=== PATIENT | female | born 1975 | race Caucasian/White ===

== ENCOUNTER → 2016-12-19 | Outpatient (REF) ==
[~2016-12-19] MED LIST: AMOXICILLIN/CLA1 TA1 PO; CEPHALEXIN500 M1 PO; D-31000 IU PO; FLAGYL500 MG PO; FOLIC ACID 40400 MCG PO; LEVEMIR100 U/ML SC; MOTRIN 800800 MG/TAB PO; NOVOLOG FLEX100 U/ML IV; NOVOLOG FLEX100 U/ML SQ; PERCOCET 325 MG1 TA2 PO; PRENATAL1 TA1 PO
== END ==
LOC: WSOH 08:00
DX: Z01.89 Encounter for other specified special examinations (principal)

== ENCOUNTER → 2018-07-25 | Outpatient (CLI) | payer BC | LOC: SUN.DIA 13:26 | DX: E11.9 Type 2 diabetes mellitus without complications (principal); E66.9 Obesity, unspecified; F17.210 Nicotine dependence, cigarettes, uncomplicated | CPT/HCPCS: G0108 ==

== ENCOUNTER → 2018-08-15 | Outpatient (CLI) | payer BC | LOC: SUN.DIA 08:44 | DX: E11.9 Type 2 diabetes mellitus without complications (principal); E66.9 Obesity, unspecified; F17.210 Nicotine dependence, cigarettes, uncomplicated | CPT/HCPCS: G0108 ==

== ENCOUNTER → 2018-09-26 | Outpatient (CLI) | payer BC | LOC: SUN.DIA 08:39 | DX: E11.9 Type 2 diabetes mellitus without complications (principal); E66.9 Obesity, unspecified; F17.210 Nicotine dependence, cigarettes, uncomplicated | CPT/HCPCS: G0108 ==

== ENCOUNTER → 2023-10-02 | Outpatient (CLI) | payer BC ==
[2005-04-05 10:00] VITALS: TEMP 97
[~2023-10-02] MED LIST changes: +CUBICIN 500MG500 MG IV; +LEXAPRO20 MG PO; +MOUNJARO2.5 MG/0.5 SQ; +VITAMIND3 5000 PO
== END ==
LOC: MC.RAD 16:22
DX: Z12.31 Encounter for screening mammogram for malignant neoplasm of breast (principal)

== ENCOUNTER → 2023-10-08 | Outpatient (CLI) | payer BC ==
[~2023-10-08] MED LIST changes: -CUBICIN 500MG500 MG IV; -LEXAPRO20 MG PO; -MOUNJARO2.5 MG/0.5 SQ; -VITAMIND3 5000 PO
== END ==
LOC: MC.RAD 07:54
DX: N63.21 Unspecified lump in the left breast, upper outer quadrant (principal)

== ENCOUNTER 2023-11-21 17:35 | Inpatient (IN) | payer BC ==
[~2023-11-21] VITALS: Ht 162.6 cm; Wt 75.7 kg
[2023-11-21] MEDS ORDERED: Acetaminophen 325 MG TAB PO ONE (18:30)
[2023-11-21] MEDS ORDERED: NS 1,000 ML IV SCH ×2 (18:30→20:00)
[2023-11-21 18:36] LABS: BASO # 0.1 K/mm3 (0.0-0.2); BASO % 0.3 % (0.0-2.0); EOS % 0.1 % (0.0-4.0); GRAN # 12.3 K/mm3 (1.4-6.5); GRAN % 83.8 % (42.2-75.2); LYMPH # 1.2 K/mm3 (1.2-3.4); LYMPH % 7.9 % (20.0-51.0); MEAN CELL VOLUME 95 fl (80.0-100.0); MEAN CORPUSCULAR HEMOGLOBIN 31 pg (27-31); MEAN CORPUSCULAR HGB CONC 33 g/dl (33.0-37.0); MEAN PLATELET VOLUME 8.8 fl (7.4-10.4); MONO # 1.1 K/mm3 (0.1-0.6); MONO % 7.2 % (1.7-9.3); PLATELET COUNT 147 K/mm3 (130-400); RED BLOOD COUNT 3.87 M/mm3 (4.10-5.30); REDCELL DISTRIBUTION WIDTH-CV 12.8 % (11.5-14.5)
[2023-11-21 18:39] LABS: HEMATOCRIT 36.7 % (37.0-47.0)
[2023-11-21 18:58] LABS: ALBUMIN 3.1 gm/dL (3.5-5.0); BILIRUBIN,TOTAL 0.6 mg/dL (0.2-1.2); CREATININE, serum 0.74 mg/dL (0.57-1.11); POTASSIUM 3.9 mmol/L (3.5-4.5); TOTAL PROTEIN 6.3 gm/dL (6.2-8.1)
[2023-11-21 19:48] LABS: PH 6.5 (5.0-8.5); URINE APPEARANCE CLEAR (CLEAR/HAZY); URINE BLOOD NEGATIVE (NEGATIVE); URINE COLOR YELLOW (YELLOW); URINE GLUCOSE NEGATIVE (NEGATIVE); URINE KETONE NEGATIVE (NEGATIVE); URINE NITRATE NEGATIVE (NEGATIVE); URINE PROTEIN(semi-quant) NEGATIVE (NEGATIVE)
[2023-11-21] MEDS ORDERED: Acetaminophen 325 MG TAB PO PRN (20:00)
[2023-11-21] MEDS ORDERED: Ondansetron 4 MG/2 ML VIAL IV PRN (20:00)
[2023-11-21] MEDS ORDERED: oxyCODONE 5 MG TAB PO PRN ×2 (20:00)
[2023-11-21] MEDS ORDERED: Morphine 4 MG/ML VIAL IV PRN (20:00)
[2023-11-21 20:03] LABS: COLLECTION METHOD CLEAN CATCH
[2023-11-21] MEDS ORDERED: Vancomycin 1.5 GM,Special Dose/Pharmacy Prepared 1.5 GM in NS 250 ML IV SCH (20:15)
[2023-11-21] MEDS ORDERED: LEXAPRO20 MG PO (20:36)
[2023-11-21] MEDS ORDERED: Sennosides/Docusate 8.6-50 MG TAB PO SCH (21:00)
[2023-11-21] MEDS ORDERED: Heparin 5,000 UNITS/ML 1 ML VIAL SQ SCH (21:00)
[2023-11-21 22:00] VITALS: BP 124/79; PULSE 112; TEMP 99.5
--- NOTE | 2023-11-21 22:37 | NUR ---
Vancomycin Initial Dosing Pharmacy Note Ordering provider: Deni Overton MD Indication/duration: Sepsis w/ possible source of cellulitis at Port-a-cath Relevant comorbidities: Breast cancer undergoing chemo. LABS: WBC = 14.7, SCr = 0.74, Tmax = 100.5 F Recommendation: Will draw troughs and follow levels. Loading dose: 1.5 grams Maintenance dose: 1 gram every 12 hours Trough goal: 10-15 ug/mL
[2023-11-21] MEDS ORDERED: VITAMIND3 5000 PO (23:06)
[2023-11-21] MEDS ORDERED: MOUNJARO2.5 MG/0.5 SQ (23:07)
[2023-11-21 23:47] VITALS: BP 118/74; PULSE 129; TEMP 102.9
[2023-11-22] VITALS (13 sets, daily range): BP systolic 102–122; BP diastolic 59–74; PULSE 114–130; TEMP 97.5–101.6
--- NOTE | 2023-11-22 01:09 | NUR ---
Patient temp on hour ago 102.9 and received tylenol 1000mg. Temp currently 101.6. TELE reporting tachycardia. Spoke with ARAMIS Guaman and new orders received and initiated. Report given to primary nurse JADIEL Gonzalez.
--- NOTE | 2023-11-22 01:10 | NUR ---
RT notified of need for EKG due to tachycardia
[2023-11-22] MEDS ORDERED: Ibuprofen 600 MG TAB PO ONE (01:15)
[2023-11-22] MEDS ORDERED: NS 1,000 ML IV ONE (01:15)
--- NOTE | 2023-11-22 02:20 | NUR ---
Updated ARAMIS Guaman on current temp of 101.6. Fluid bolus has infused and EKG completed. New orders received and initiated.
[2023-11-22] MEDS ORDERED: Albumin (Human) 100 ML IV ONE (02:30)
[2023-11-22] MEDS ORDERED: NS 500 ML IV ONE ×2 (02:30)
--- NOTE | 2023-11-22 02:31 | NUR ---
New orders received from ARAMIS Guaman and initiated. Patient scoring 5 on MEWs. No rapid response called at this time due to provider being updated and treating with fluids/antipyretics. Report given to primary nurse JADIEL Gonzalez.
--- NOTE | 2023-11-22 04:15 | NUR ---
ARAMIS Guaman updated on temp of 97.5. No new orders received.
--- NOTE | 2023-11-22 04:36 | NUR ---
patient arrived from ED at 2200, alert and oriented x4. pt denies chest pain and shortness of breath. IV in RH is patent, site is clean dry and intact with NS running at 125ml/hr. no remarkable skin findings, right chest port with gauze dressing, clean dry and intact. ambulating with steady gait. pt tachycardic in 130s-150s, temperature 102.9, tylenol given, next measured temp 101.5, MEWS of 5, bias cutting machine operator vertical in to assess pt and bias cutting machine operator vertical notified ARAMIS Eisenberg, orders placed for NS 1000 bolus and motrin and then an additional 500 ml bolus with 100ml albumin, orders initiated, pt denies feeling palpitations or chest pain. pt experiencing chills off and on with warm flashes and mentions also being "menopausal". reassessed temp of 97.5 and heart rate current around 100s-119s. pt has no further needs, questions, or concerns at this time. call light within reach. will continue to monitor.
[2023-11-22 06:50] LABS: BASO % 0.4 % (0.0-2.0); GRAN # 9.8 K/mm3 (1.4-6.5); GRAN % 87.3 % (42.2-75.2); LYMPH # 0.7 K/mm3 (1.2-3.4); MEAN CELL VOLUME 94 fl (80.0-100.0); MEAN CORPUSCULAR HGB CONC 33 g/dl (33.0-37.0); MEAN PLATELET VOLUME 9.1 fl (7.4-10.4); MONO # 0.6 K/mm3 (0.1-0.6); MONO % 5.2 % (1.7-9.3); PLATELET COUNT 128 K/mm3 (130-400); RED BLOOD COUNT 3.03 M/mm3 (4.10-5.30); REDCELL DISTRIBUTION WIDTH-CV 12.9 % (11.5-14.5)
--- NOTE | 2023-11-22 07:00 | NUR ---
PATIENT AWAKE AND ALERT, RESTING IN BED. PATIENT DENIES ANY NEEDS OR COMPLAINTS AT THIS TIME. CALL LIGHT WITHIN REACH. IVF INFUSING.
[2023-11-22 07:07] LABS: HEMATOCRIT 28.6 % (37.0-47.0); MEAN CORPUSCULAR HEMOGLOBIN 31 pg (27-31)
[2023-11-22 07:08] LABS: ALBUMIN 2.8 gm/dL (3.5-5.0); BILIRUBIN,TOTAL 0.5 mg/dL (0.2-1.2); CALCIUM 7.4 mg/dL (8.4-10.2); CREATININE, serum 0.7 mg/dL (0.57-1.11); HEMOGLOBIN 9.4 g/dl (12.5-16.0); POTASSIUM 3.4 mmol/L (3.5-4.5); TOTAL PROTEIN 5.1 gm/dL (6.2-8.1)
--- NOTE | 2023-11-22 08:24 | NUR ---
DR CIFUENTES INFORMED OF CONSULT. PATIENT AWARE OF NPO STATUS.
[2023-11-22] MEDS ORDERED: Potassium Chloride 10 mEq/100 mL IV Soln IV SCH (10:00)
--- NOTE | 2023-11-22 10:00 | NUR ---
PATIENT SHOWERED AND BACK IN BED. IVF INFUSING. .PATIENT DENIES ANY NEEDS OR COMPLAINTS AT THIS TIME. CALL LIGHT WITHIN REACH, FAMILY MEMBER AT BEDSIDE.
--- NOTE | 2023-11-22 10:06 | NUR ---
Initial visit; Patient and her thanked Sales Promotion Manager for looking in on her and offering God's blessings and keeping her in Sales Promotion Manager's prayers. Patient states she has no needs at this time and is feling a lot better.
--- NOTE | 2023-11-22 11:23 | NUR ---
Coffee Brewer met with patient to discuss discharge planning. Patient lives in [place] with her , Philip (ph#[phone]) who is at bedside. Patient sees Dr. Ricks for primary care locally. Patient is currently getting chemotherapy at [facility] with Dr. Sinha. Patient is supposed to get it every three weeks and had her first treatment two weeks ago. Patient does not use any DME and is independent with ADLS. Patient is employed at the [employer] Patient reported she has DPOA-HC completed designating Philip. Discharge Plan; Home
--- NOTE | 2023-11-22 11:33 | NUR ---
PATIENT DOES NOT WANT ANY FURTHER TREATMENT HERE, AND IS REQUESTING TO BE TRANSFERED TO [facility]. PATINET IV INFILTRATED. ALL IV FLUIDS/MEDS STOPPED, COMPRESS APPLIED.
--- NOTE | 2023-11-22 12:30 | NUR ---
MADE AWARE PATIENTS BLOOD CULTURE POSITIVE FOR STAPH
--- NOTE | 2023-11-22 12:43 | NUR ---
COREY REFUSING RN TO PLACE NEW IV. PATIENT EDUCATED ON NECISTY FOR IV ANTIBIOTICS, FLUIDS AND POTASSIUM REPLACEMENT ABD POSITIVE BLOOD CULTURES. COREY STILL DENIES AND IS REQUESTING OUR PHYSICIAN TO SPEAK TO HER ONCOLOGIST. MD GASPAR
[2023-11-22] MEDS ORDERED: Potassium Bicarbonate/Citrate 20 MEQ Effervescent TAB PO SCH (15:00)
--- NOTE | 2023-11-22 16:00 | NUR ---
NEW IV STARTED TO RAC, PLACED BY MEDICAL ASSEMBLER. PATIENTS IV FLUIDS REINITIATED, IV ZOSYN NOW INFUSING ORDERED. PATIENTS CALL LIGHT WITHIN REACH. PATIENT DENIES ANY NEEDS OR COMPLAINTS AT THIS TIME.
--- NOTE | 2023-11-22 18:30 | NUR ---
PORTACATH REMOVAL COMPLETED AT BEDSIDE BY DR CIFUENTES. PATIENTS DRESSING CDI. PATIENT DENIES ANY NEEDS OR COPLAINTS AT THIS TIME. PATIENTS AT BEDSIDE. CALL LIGHT WITHIN REACH.
--- NOTE | 2023-11-22 19:05 | NUR ---
PATIENT HAD REFUSED IV PLACED FROM -, THEN SURGEON CAME UP FOR BEDSIDE PROCEDURE AT [id number]. ZOSYN AGAIN INFUSING ON PATIENT. PHARMACY CALLED FOR RETIME ON ANTIBIOTIC D/T THE ABOVE.
[2023-11-22] MEDS ORDERED: diphenhydrAMINE 25 MG CAP PO ONE (21:00)
[2023-11-23] VITALS (12 sets, daily range): BP systolic 107–152; BP diastolic 69–96; PULSE 69–105; TEMP 97.7–99.2
--- NOTE | 2023-11-23 02:36 | NUR ---
ARAMIS Guaman at bedside to assess right upper extremity swelling. New VORB to decrease IV fluids to 100ml/hr. Done at this time. Report given to primary nurse JADIEL Gonzalez.
--- NOTE | 2023-11-23 03:03 | NUR ---
patient lying in bed alert and oriented x4. pt denies chest pain and shortness of breath. 2052- ARAMIS Eisenberg notified of pt request for benadryl to help with sleep, orders placed and given. IV in RAC is patent, site is clean dry and intact with NS running at 125 ml/hr that got switched at 0230 to 100ml/hr per ARAMIS Eisenberg orders after this RN notified him of pt right arm being swollen, "tight" feeling and slightly red at 0144 and assessing arm. right chest port pulled out during shift change by physician, gauze/dressing applied, clean dry and intact. small scattered bruising noted on extremities and abd. pt has no further needs, questions, or concerns at this time. ambulating with steady gait. call light within reach. tylenol given per request for headache. will continue to monitor.
[2023-11-23 06:19] LABS: BASO % 0.5 % (0.0-2.0); GRAN # 5.8 K/mm3 (1.4-6.5); GRAN % 74.8 % (42.2-75.2); LYMPH # 1.1 K/mm3 (1.2-3.4); LYMPH % 14.5 % (20.0-51.0); MEAN CELL VOLUME 93 fl (80.0-100.0); MEAN CORPUSCULAR HGB CONC 33 g/dl (33.0-37.0); MEAN PLATELET VOLUME 9.3 fl (7.4-10.4); MONO # 0.8 K/mm3 (0.1-0.6); MONO % 9.7 % (1.7-9.3); PLATELET COUNT 166 K/mm3 (130-400); RED BLOOD COUNT 3.08 M/mm3 (4.10-5.30); REDCELL DISTRIBUTION WIDTH-CV 12.8 % (11.5-14.5)
[2023-11-23 06:26] LABS: ALBUMIN 2.2 gm/dL (3.5-5.0); BILIRUBIN,TOTAL 0.5 mg/dL (0.2-1.2); CALCIUM 7.3 mg/dL (8.4-10.2); CREATININE, serum 0.74 mg/dL (0.57-1.11); POTASSIUM 3.7 mmol/L (3.5-4.5); TOTAL PROTEIN 4.8 gm/dL (6.2-8.1)
[2023-11-23 06:28] LABS: HEMATOCRIT 28.7 % (37.0-47.0); HEMOGLOBIN 9.5 g/dl (12.5-16.0); MEAN CORPUSCULAR HEMOGLOBIN 31 pg (27-31)
--- NOTE | 2023-11-23 08:00 | NUR ---
patient awake and alert, sititng up in bed. patient denies any needs or complaints at this time. [facility]
[2023-11-23] MEDS ORDERED: ceFAZolin 2 G in Water For Injection,Sterile 20 ML IV SCH (08:45)
--- NOTE | 2023-11-23 13:00 | NUR ---
patient awake and alert, sitting up in bed. call light within reach. at bedside. patinet denies any needs or complaints at this time.
[2023-11-23] MEDS ORDERED: Escitalopram 10 MG TAB PO SCH (13:07)
--- NOTE | 2023-11-23 18:00 | NUR ---
PATIENTS DRESSIGN CHANGED (WEHRE RI CHEST PORT WAS REMOVED. PATINET TOLERATED WELL.
--- NOTE | 2023-11-23 18:50 | NUR ---
BEDSIDE SHIFT REPORT COMPLETE, IV ZOSYN INFUSIGN ORDERED. PATIENT DENIES ANY NEEDS OR COMPLAIONTS AT THIS TIME. HER HUSABND AND 2 CHILDREN AT BEDSIDE.
--- NOTE | 2023-11-23 21:10 | NUR ---
Patient resting in bed with family at bedside. Denies any pain at this time. States she would like some benadryll to help her sleep since it seemed to help her last night. Hospitalist contacted and recieved new orders for PRN benadryll. Denies any other needs at this time. Assessment complete. IV in right AC flushes easily with no complications. Dressing to right upper chest is CDI. Call light and personal items in reach. Bed in low position.
[2023-11-23] MEDS ORDERED: diphenhydrAMINE 25 MG CAP PO PRN (22:00)
[2023-11-24] VITALS (12 sets, daily range): BP systolic 116–144; BP diastolic 73–88; PULSE 75–105; TEMP 97.5–98.4
--- NOTE | 2023-11-24 06:00 | NUR ---
Patient resting in bed. Denies any pain or needs at this time. No changes over night. New IV started in left hand. Call light and personal items in reach. Bed in low position.
--- NOTE | 2023-11-24 10:44 | NUR ---
Patient alert and oriented x4. Shift assessment complete. Complains of headache, PRN Tylenol administered with morning medications. IV to RAC noted to be leaking, site discontinued. L hand IV site patent. Patient requested shower, supplies provided and IV site covered/wrapped. Patient somewhat tearful this morning due to hair loss related to chemotherapy, but states she is staying positive. Left buccal area has minimal redness noted. Patient states she does have rosacea, but thinks it is a pimple. Call light within reach, all needs met at this time.
--- NOTE | 2023-11-24 17:50 | NUR ---
Patient remains stable. Visitors at bedside. Patient ambulated around unit for a while with friend. Denies increase in pain. About an hour after returning from walk patient complained of burning feeling at port removal site. No redness or increased drainage noted, area soft with no bruising or hematoma noted. Dry light pink area noted to gauze and marked with sharpie to track any increase. Ice pack provided. Call light within reach, all needs met at this time.
--- NOTE | 2023-11-24 21:10 | NUR ---
PT ALERT AND ORIENTED, UP A ORTIZ. VSS, SHIFT ASSESSMNET COMPLETE. ASKING FOR US TO HAVE HER DOCTORS TO CONSULT TOGETHER ON HER CARE. SHE WOULD LIKE MEDICAL RECORDS SENT OVER TO VARIOUS DOCTORS INVOLVED IN HER CARE. PLEASANT AND SLIGHLTY ANXIOUS ABOUT ALL THE MEDICAL DECISIONS SHE IS HAVIGN TO COORDINATE. IS INTRERESTED IN A MEDICAL LIASON PERSON TO HELP HER NAVIGATE AREAS OF HEALTH MATTERS. MEDICATED PER EMAR, DENIES PAIN AT THIS TIME. CALL LIGHT WITHIN REACH.
[2023-11-25] VITALS (11 sets, daily range): BP systolic 119–141; BP diastolic 80–84; PULSE 95–106; TEMP 97.5–98.6
[2023-11-25] MEDS ORDERED: Escitalopram 10 MG TAB PO SCH (10:04)
--- NOTE | 2023-11-25 10:40 | NUR ---
Patient alert and oriented x4. Shift assessment complete. Patient denies pain or discomfort this morning. Took a shower independently. Tolerating food and fluids well. Port removal site CDI with no redness or swelling noted. Activity at baseline. Visitors at bedside. Call light within reach, all needs met at this time.
--- NOTE | 2023-11-25 20:30 | NUR ---
UPON SHIFT ASSESSMENT, FATMATA WAS SITTING ON BED SIDE COUCH WITH DAUGHTER AND MOTHER. SHE IS PLESANT AND AXO X4. DRESSING TO FORMER PORT SITE IS CDI. VITAL SIGNS ARE WNL WITH EXCEPTION OF PULSE-SLIGHTLY TACHYCARDIC AT 102. SHE C/O OF [place] 02/17 AND REQUESTED AND RECIEVED TYLENOL. SHE DENIES ANY OTHER NEEDS AT THIS TIME AND CALL LIGHT WITHIN REACH.
[2023-11-26] VITALS (15 sets, daily range): BP systolic 132–155; BP diastolic 78–89; PULSE 75–105; TEMP 97.8–98.8
[2023-11-26] MEDS ORDERED: Cholecalciferol (Vit D3) 5000 Units Capsule PO SCH (09:00)
--- NOTE | 2023-11-26 10:37 | NUR ---
Patient awake, alert and oriented. C/O headache - PRN given as ordered. NPO in preparation for ERENDIRA today. Anxious to know when procedure will be happening. Communicated with sawyer cork slabs, no time scheduled yet. Denies further needs. Bed in lowest position with call light within reach.
[2023-11-26] MEDS ORDERED: Lidocaine PF 1% (10 MG/ML) 5 ML VIAL ONE (13:21)
--- NOTE | 2023-11-26 20:30 | NUR ---
FATMATA WAS UP IN BED WITH FAMILY VISITTING BEDSIDE. SHE IS PLESANT AND AXO X 4. RT UPPER CHEST DRESSING IS CDI. NO DRAINAGE OR ERYTHEMA NOTED AND PATIENT IS AFEBRILE. VS ARE WNL AND VANCOMYCIN TO BE STATRTED AT 21:00 TO ADDRESS STAPH RESULTS FROM PORT/CATHETER TIP CULTURE. PATIENT ANXIOUS TO GET PICC LINE PLACED SO SHE MAY DISCHARGE ON IV ABX WITH HOME HEALTH.
[2023-11-27] VITALS (7 sets, daily range): BP systolic 132–152; BP diastolic 84–87; PULSE 89–94; TEMP 97.3–98.1
--- NOTE | 2023-11-27 08:00 | NUR ---
Pt up in room, completeing hygiene. Pt is A&Ox4. VSS. Independent in the room. S1S2 with clear lung sounds. Slightly diminihed in lower lobes, bilaterally. Pt denies pain, n/v, headache, dizziness, issues going to the bathroom. Administered AM meds as per EMAR. Previous port site is covered with gauze and tegaderm and CDI. Iv in L forearm is patent. Notified Pt of plan for PICC insertion today. Pt agreeable. Pt has call light in reach and breakfast tray in room.
--- NOTE | 2023-11-27 10:00 | NUR ---
Patient awake, alert and oriented. Denies pain, nausea or shortness of breath. Agree with JADIEL Tang's assessment. Anxious to get PICC and discharge. Denies further needs at this time. Bed in lowest position with call light within reach.
[2023-11-27] MEDS ORDERED: CUBICIN 500MG500 MG IV (10:22)
[2023-11-27 10:57] LABS: BASO % 0.7 % (0.0-2.0); EOS # 0.1 K/mm3 (0.0-0.7); EOS % 1.1 % (0.0-4.0); GRAN # 3.4 K/mm3 (1.4-6.5); HEMATOCRIT 49.9 % (37.0-47.0); LYMPH # 1.5 K/mm3 (1.2-3.4); LYMPH % 26.2 % (20.0-51.0); MEAN CELL VOLUME 95 fl (80.0-100.0); MEAN CORPUSCULAR HEMOGLOBIN 31 pg (27-31); MEAN CORPUSCULAR HGB CONC 32 g/dl (33.0-37.0); MEAN PLATELET VOLUME 9.5 fl (7.4-10.4); MONO # 0.6 K/mm3 (0.1-0.6); MONO % 9.8 % (1.7-9.3); PLATELET COUNT 259 K/mm3 (130-400); RED BLOOD COUNT 5.25 M/mm3 (4.10-5.30)
[2023-11-27 11:08] LABS: CALCIUM 7.8 mg/dL (8.4-10.2); CREATININE, serum 0.75 mg/dL (0.57-1.11); POTASSIUM 3.9 mmol/L (3.5-4.5)
[2023-11-27] MEDS ORDERED: DAPTOmycin 400 MG in NS 8 ML IV SCH (12:00)
--- NOTE | 2023-11-27 13:22 | NUR ---
Reject Opener was notified that patient is discharging today and will need outpatient IV antibiotics. GIDEON met with patient and her , Philip to discuss outpatient vs home antibiotics. Patient would prefer to do them at home and understands that she would have to learn how to administer them. GIDEON provided Medicare.gov list of HH providers and patient selected [facility] for some additional nursing visits. GIDEON faxed referral to [facility]. GIDEON also contacted Aida at [facility] and faxed referral. Aida contacted GIDEON and advised she would be at bedside this afternoon to do teachings. Aida advised they should be good to get patient set up for today. GIDEON was in communication with Patricia at [facility] who continues to review referral. GIDEON requested Patricia contact GIDEON Arteaga with decision on acceptance. GIDEON contacted both patient and her RN to provide update.
--- NOTE | 2023-11-27 15:08 | NUR ---
Patient receiving midline for IV abx due to inability to place PICC per RN report. GIDEON spoke with Angela with [facility] who stated she is meeting with patient for teaching at 3 pm today. GIDEON received call from Patricia with [facility] reporting they are accepting patient for HH services. Patient to discharge home today. Midline orders, dc orders and abx prescription faxed to [facility] and [facility].
--- NOTE | 2023-11-27 15:42 | NUR ---
Education being given via IV nurse for home administration.
--- NOTE | 2023-11-27 15:58 | NUR ---
Pt received education from OP Pharmacy nurse regarding ABX administration to the midline catheter. D/C Pt's peripheral IV from L forearm. Pt ambulated with RN to car. at bedside for education and driving home.
--- NOTE | 2023-11-28 15:14 | NUR ---
0900 - Contact was made with the patient. She was seen in the ED lastnight for swelling in her right arm where he midline had been placed and reports that her fingertips were blue. She reports that her symptoms were worse. Patient was advised to either come to the ED for another evaluation or to call her PCP for an eval and to request a venous ultrasound. Patient verbalilzed agreement 1030 - Angle Rodriguez, ICU Costume Director informed of patients symptoms. She call Dr. Sierra requesting a venous US for the patient. Will wait for response. [id number] - Called patient to follow up and she reports that her PCP referred her back to her Cancer DR. at . Informed the patient that DR. Sierra offered to have her come back to the express unit for a venous ultrasound and eval. She called her Cancer doctor and he wants her to be evaluated and treated by him so she will be going to [facility] today.
== END 2023-11-27 16:15 | disposition home health service (06) | DRG 315 ==
LOC: COL.ER 17:35 → MEDICAL 19:52 → SURG 11-26 13:18 → MEDICAL 11-27 16:15
PROVIDERS: Family Medicine; Physician Assistant; ADMIT Internal Medicine
PROC: 0JPT0XZ Removal of Tunneled Vascular Access Device from Trunk Subcutaneous Tissue and Fascia, Open Approach (ICD-10-PCS; principal; 2023-11-21)
DX: T80.211A Bloodstream infection due to central venous catheter, initial encounter (principal); D84.9 Immunodeficiency, unspecified; L03.90 Cellulitis, unspecified; B95.61 Methicillin susceptible Staphylococcus aureus infection as the cause of diseases classified elsewhere; Z87.891 Personal history of nicotine dependence; C50.919 Malignant neoplasm of unspecified site of unspecified female breast
CPT/HCPCS: C1751; J0690; J0878; J1644; J2405; J2543; J2704; J3370; J3480; J7030; J7040; J7050; P9047; Q3014

== ENCOUNTER 2023-11-27 21:52 | Emergency (ER) | payer BC ==
[~2023-11-27] VITALS: Ht 162.6 cm; Wt 75.5 kg
[~2023-11-27 21:52] MED LIST changes: +CUBICIN 500MG500 MG IV; +LEXAPRO20 MG PO; +MOUNJARO2.5 MG/0.5 SQ; +VITAMIND3 5000 PO
[2023-11-27 22:11] VITALS: BP 143/78; TEMP 98.1
[2023-11-27 22:46] VITALS: PULSE 82
== END 2023-11-27 22:46 | disposition home or self-care (01) ==
LOC: COL.ER 21:52
DX: Z45.2 Encounter for adjustment and management of vascular access device (principal)